=== PATIENT | female | born 2000 | race African-American/Black ===

== ENCOUNTER 2024-11-23 14:46 | Emergency (ER) | payer MEDICAID ==
[~2024-11-23] VITALS: Ht 162.6 cm; Wt 40.0 kg
[2024-11-23 14:49] VITALS: O2SAT 100
[2024-11-23 14:56] VITALS: BP 137/65; PULSE 66; RESP 18; TEMP 36.9; O2SAT 98
== END 2024-11-23 18:00 | disposition home or self-care (01) ==
LOC: ER 14:46
DX: M54.9 Dorsalgia, unspecified (principal)
CPT/HCPCS: 72070; 99283